=== PATIENT | male | born 1950 | race Caucasian/White ===

== ENCOUNTER → 2020-03-14 | Outpatient (CLI) | payer MEDICARE, OTHER ==
[~2020-03-14] MED LIST: ASPIRIN CHEWABL81 MG PO; COZAAR100 MG PO; IMDUR ER TAB 3030 MG PO; LOPRESSOR 25 MG25 MG PO; MOBIC15 MG PO; PROSCAR5 MG PO; SINGULAIR10 MG PO; ZOCOR20 MG PO
[2020-03-14 11:02] LABS: RED BLOOD COUNT 5.16 M/UL (4.20-5.50); WHITE BLOOD COUNT 9.2 K/UL (4.5-11.0)
[2020-03-14 11:29] LABS: BUN/CREATININE RATIO 16 (0-10)
== END ==
LOC: LAB 10:32
PROVIDERS: Family Medicine
DX: E78.5 Hyperlipidemia, unspecified (principal); I10 Essential (primary) hypertension; E55.9 Vitamin D deficiency, unspecified
CPT/HCPCS: 36415; 80053; 80061; 84439; 84443; 85027

== ENCOUNTER 2021-04-27 09:35 | Emergency (ER) | payer MEDICARE, OTHER ==
[~2021-04-27] VITALS: Ht 175.3 cm; Wt 104.3 kg
[2021-04-27 09:57] LABS: HEMOGLOBIN 15.7 gm/dl (14.0-17.5); RED BLOOD COUNT 5.05 M/UL (4.20-5.50); WHITE BLOOD COUNT 6.9 K/UL (4.5-11.0)
[2021-04-27 10:40] LABS: BUN/CREATININE RATIO 17 (0-10)
== END 2021-04-27 16:10 | disposition home or self-care (01) ==
LOC: ER1 09:35
PROVIDERS: Family Medicine
DX: U07.1 COVID-19 (principal); Z23 Encounter for immunization; G47.00 Insomnia, unspecified; M79.10 Myalgia, unspecified site; I10 Essential (primary) hypertension
CPT/HCPCS: 71045; 80053; 82550; 82553; 83605; 83874; 84484; 85025; 86140; 99284; M0247; U0002

== ENCOUNTER → 2021-05-01 | Outpatient (CLI) | payer MEDICARE, OTHER | LOC: RAD 17:15 | DX: R05.9 Cough, unspecified (principal); R91.8 Other nonspecific abnormal finding of lung field | CPT/HCPCS: 71046 ==

== ENCOUNTER 2021-05-07 16:28 | Emergency (ER) | payer MEDICARE, OTHER ==
[2021-05-07 17:31] LABS: HEMOGLOBIN 13.9 gm/dl (14.0-17.5); RED BLOOD COUNT 4.63 M/UL (4.20-5.50); WHITE BLOOD COUNT 9.3 K/UL (4.5-11.0)
[2021-05-07 17:57] LABS: BUN/CREATININE RATIO 15 (0-10)
== END 2021-05-07 21:10 | disposition home or self-care (01) ==
LOC: ER1 16:28
PROVIDERS: Nurse Practitioner
DX: U07.1 COVID-19 (principal); I11.9 Hypertensive heart disease without heart failure; E10.9 Type 1 diabetes mellitus without complications
CPT/HCPCS: 71045; 80053; 81001; 82550; 82553; 84484; 85025; 85379; 85652; 86140; 93005; 96374; 99285; J1885; Q9967

== ENCOUNTER → 2021-10-24 | Outpatient (CLI) | payer MEDICARE, OTHER ==
[~2021-10-24] MED LIST changes: +AMLODIPINE BESYL5 MG PO; +B-12500 MCG PO; +FAMOTIDINE40 MG PO; +ISOSORBIDE MONO30 MG PO; +METFORMIN HCL500 MG PO; +METOPROLOL TART25 MG PO; +PROTONIX40 MG PO
== END ==
LOC: RAD 11:04
DX: R07.9 Chest pain, unspecified (principal)
CPT/HCPCS: 71046

== ENCOUNTER 2021-10-26 12:30 | Observation (INO) | payer MEDICARE, OTHER ==
[~2021-10-26] VITALS: Ht 175.3 cm; Wt 107.5 kg
[~2021-10-26 12:30] MED LIST changes: -AMLODIPINE BESYL5 MG PO; -B-12500 MCG PO; -FAMOTIDINE40 MG PO; -ISOSORBIDE MONO30 MG PO; -METFORMIN HCL500 MG PO; -METOPROLOL TART25 MG PO; -PROTONIX40 MG PO
[2021-10-26 13:25] LABS: HEMOGLOBIN 15.1 gm/dl (14.0-17.5); RED BLOOD COUNT 4.76 M/UL (4.20-5.50); WHITE BLOOD COUNT 7.7 K/UL (4.5-11.0)
[2021-10-26 13:51] LABS: BUN/CREATININE RATIO 16 (0-10)
[2021-10-26] MEDS ORDERED: AMLODIPINE BESYL5 MG PO (16:09)
[2021-10-26] MEDS ORDERED: FAMOTIDINE40 MG PO (16:10)
[2021-10-26] MEDS ORDERED: METFORMIN HCL500 MG PO (16:11)
[2021-10-26] MEDS ORDERED: METOPROLOL TART25 MG PO (16:12)
[2021-10-26] MEDS ORDERED: PROTONIX40 MG PO (16:14)
[2021-10-26] MEDS ORDERED: ISOSORBIDE MONO30 MG PO (16:16)
[2021-10-26] MEDS ORDERED: B-12500 MCG PO (16:18)
[2021-10-27 01:17] LABS: HEMOGLOBIN 14.9 gm/dl (14.0-17.5); RED BLOOD COUNT 4.72 M/UL (4.20-5.50); WHITE BLOOD COUNT 8.2 K/UL (4.5-11.0)
[2021-10-27 01:43] LABS: BUN/CREATININE RATIO 16 (0-10)
[2021-10-27] MEDS ORDERED: ISOSORBIDE MONO60 MG PO (19:36)
== END 2021-10-27 19:58 | disposition home or self-care (01) ==
LOC: ER1 12:30 → CDU 15:54 → MED SURG 4 15:54
PROVIDERS: Physician Assistant; Physician Assistant Medical; ADMIT Internal Medicine
DX: R07.89 Other chest pain (principal); I10 Essential (primary) hypertension; E78.5 Hyperlipidemia, unspecified; E11.9 Type 2 diabetes mellitus without complications; K21.9 Gastro-esophageal reflux disease without esophagitis; N40.0 Benign prostatic hyperplasia without lower urinary tract symptoms; G89.29 Other chronic pain; M25.562 Pain in left knee; M25.561 Pain in right knee; E66.9 Obesity, unspecified; Z68.35 Body mass index [BMI] 35.0-35.9, adult; Z79.82 Long term (current) use of aspirin; Z79.84 Long term (current) use of oral hypoglycemic drugs; Z79.899 Other long term (current) drug therapy
CPT/HCPCS: ECHO; 36415; 71045; 78452; 80048; 80053; 80061; 81001; 82550; 82553; 82962; 83036; 83735; 84484; 85025; 85027; 93005; 93017; 93306; 99285; A9502; G0378; J2785

== ENCOUNTER → 2021-11-09 | Outpatient (CLI) | payer MEDICARE, OTHER ==
[~2021-11-09] MED LIST changes: +AMLODIPINE BESYL5 MG PO; +B-12500 MCG PO; +FAMOTIDINE40 MG PO; +ISOSORBIDE MONO30 MG PO; +ISOSORBIDE MONO60 MG PO; +METFORMIN HCL500 MG PO; +METOPROLOL TART25 MG PO; +PROTONIX40 MG PO
== END ==
LOC: EXRD 09:52
DX: M54.50 Low back pain, unspecified (principal); M54.9 Dorsalgia, unspecified; M43.17 Spondylolisthesis, lumbosacral region; M51.36 Other intervertebral disc degeneration, lumbar region; M47.814 Spondylosis without myelopathy or radiculopathy, thoracic region
CPT/HCPCS: 72070; 72100